=== PATIENT | female | born 1950 | race Caucasian/White ===

== ENCOUNTER → 2017-01-11 | Outpatient (CLI) | payer MEDICARE ==
--- NOTE | 2017-01-11 15:35 | XR ---
Left shoulder HISTORY: Pain, fall 3 months prior 3 views of the left shoulder No comparisons Bone mineralization is reduced which may limit sensitivity. Alignment and joint spaces are maintained . Left lung apex as visualized is normal. No fracture or dislocation. IMPRESSION: No significant bone abnormality. Consider shoulder MRI for better evaluation
== END | disposition home or self-care (01) ==
LOC: RADXRYALE 13:08
PROVIDERS: ATTEND Internal Medicine
DX: M25.512 Pain in left shoulder (principal)

== ENCOUNTER 2020-04-19 10:57 | Emergency (ER) | payer OTHER, MEDICARE ==
[2020-04-19 11:09] VITALS: BP 130/80; PULSE 85; RESP 20; TEMP 98.6
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
--- NOTE | 2020-04-19 12:36 | XR ---
EXAMINATION TYPE: XR chest 2V DATE OF EXAM: 04/19/2020 COMPARISON: NONE HISTORY: Trauma 2 days prior, pain TECHNIQUE: Frontal and lateral views of the chest are obtained. FINDINGS: There is no focal air space opacity, pleural effusion, or pneumothorax seen. The cardiac silhouette size is within normal limits. The osseous structures are remarkable for an anterior wedg e compression deformity in the upper lumbar spine with only slight loss of the superior endplate heig ht. There is eventration of right hemidiaphragm. There is a slight spinal curvature. The aorta is den se. IMPRESSION: No acute cardiopulmonary process. Compression deformity lumbar spine of questionable age .
--- NOTE | 2020-04-19 12:38 | XR ---
Right elbow HISTORY: Trauma 2 days prior, pain 3 views the right elbow There is soft tissue swelling present. Small ossific density present at the level of the lateral cond yle the distal humerus may be due to calcification rather than chip fracture or avulsion injury. Ther e are some marginal spurring changes present. Bone mineralization is reduced. Joint spaces and alignm ent are maintained. No evident joint effusion. IMPRESSION: Soft tissue swelling. No acute fracture or dislocation is evident.
== END 2020-04-19 12:55 | disposition home or self-care (01) ==
LOC: EC 10:57
DX: M62.830 Muscle spasm of back (principal); M25.522 Pain in left elbow; Z90.49 Acquired absence of other specified parts of digestive tract; V43.52XA Car driver injured in collision with other type car in traffic accident, initial encounter; Y92.410 Unspecified street and highway as the place of occurrence of the external cause
CPT/HCPCS: 71046; 93005; 99284

== ENCOUNTER 2021-12-17 09:28 | Day surgery (SDC) | payer MEDICARE ==
[2021-12-16 11:39] VITALS: BMI 26.5
[2021-12-17 10:35] VITALS: TEMP 97.9
[2021-12-17] MEDS: LACTATED RINGERS 1,000 ML IV SCH ×2 (10:35→11:40)
[2021-12-17] MEDS ORDERED: PROPOFOL 10 MG/ML 20 ML VIAL IV ONE (11:41)
[2021-12-17] MEDS ORDERED: LIDOCAINE 2% INJ 20 MG/ML (2 ML VIAL) ONE (11:41)
--- NOTE | 2021-12-17 11:51 | P.PCN ---
Date of Procedure: 12/17/21 Procedure(s) Performed: BRIEF HISTORY: Patient is a 68-year-old, pleasant, white female scheduled for an upper endoscopy as a part of follow-up of peptic ulcer disease. She had an upper GI bleed in August 2019 an upper endoscopy done in regards to the hospital and was diagnosed with large prepyloric gastric ulcer. Since then she has been on omeprazole and Carafate and doing well.. PROCEDURE PERFORMED: Esophagogastroduodenoscopy with biopsy. PREOPERATIVE DIAGNOSIS: Follow-up of peptic ulcer disease. IV sedation per anesthesia. PROCEDURE: After informed consent was obtained, the patient was brought into the endoscopy unit. IV sedation was administered by Anesthesia under continuous monitoring. Initially the Olympus GIF-140 video endoscope was inserted into the mouth. Esophagus intubated without any difficulty. It was gradually advanced into the stomach and duodenum and carefully examined. The bulb and the second part of the duodenum appeared normal. The scope at this time was withdrawn to the stomach, adequately insufflated with air, and upon careful examination, in the prepyloric area with the previous ulcerations identified there was a polyp seen but also has completely healed. Biopsies were done from this polyp. Rest of the mucosa of the antrum, body, cardia and the fundus appeared normal. The scope was then withdrawn into the esophagus. The GE junction was located at 39 cm from the incisors. Small sliding type hiatal hernia noted. The esophagus appeared normal. There were no erosions or ulcerations seen and the patient tolerated the procedure well. IMPRESSION: 1. Prepyloric ulcer has completely. 2. Small prepyloric gastric polyps status post biopsy. 3. Small sliding type hiatal hernia RECOMMENDATIONS: The findings of this examination were discussed with the patient as well his family. She was advised to follow with the biopsy results. She can stop the omeprazole at this time as there was complete healing of the gastric ulcer...
[2021-12-17 12:22] VITALS: BP 152/67; PULSE 63; RESP 16
== END 2021-12-17 12:35 | disposition home or self-care (01) ==
LOC: ORWHC2ENDO 09:28
PROVIDERS: ATTEND Internal Medicine Gastroenterology
DX: K29.50 Unspecified chronic gastritis without bleeding (principal); K44.9 Diaphragmatic hernia without obstruction or gangrene; I25.2 Old myocardial infarction; I25.10 Atherosclerotic heart disease of native coronary artery without angina pectoris; E07.9 Disorder of thyroid, unspecified; K21.9 Gastro-esophageal reflux disease without esophagitis; Z95.5 Presence of coronary angioplasty implant and graft; Z98.890 Other specified postprocedural states
CPT/HCPCS: 88305; 43239; J2704; J2001

== ENCOUNTER 2022-01-08 06:21 | Day surgery (SDC) | payer MEDICARE ==
[~2022-01-08 06:21] MED LIST: ALPRAZolam 0.25 MG TAB PO PRN; ALPRAZolam 0.5 MG TAB PO PRN; ASPIRIN 325 MG TAB PO STA; ATORVASTATIN 80 MG TAB PO STA; HEPARIN SODIUM,PORCINE 10,000 UNIT in SODIUM CHLORIDE 0.9% 1,000 ML IRRIGATION PRN; HEPARIN SODIUM,PORCINE 2,500 UNIT in SODIUM CHLORIDE 0.9% 250 ML IRRIGATION PRN; NITROGLYCERIN SL TABS 0.4 MG TAB SUBLINGUAL PRN; SODIUM CHLORIDE 0.9% 1,000 ML in EMPTY BAG 1 BAG IV SCH
[2022-01-08] MEDS ORDERED: SODIUM CHLORIDE 0.9% 1,000 ML IV ONE (07:14)
[2022-01-08 07:33] LABS: Basophils # (A) 0.1 k/uL (0-0.2); Basophils % (A) 1 %; Eosinophils # (A) 0.3 k/uL (0-0.7); Eosinophils % (A) 7 %; HCT 36.9 % (34.0-46.0); HGB 11.9 gm/dL (11.4-16.0); Hypochromasia Moderate; Lymphocytes # (A) 1.8 k/uL (1.0-4.8); Lymphocytes % (A) 45 %; MCH 28.8 pg (25.0-35.0); MCHC 32.1 g/dL (31.0-37.0); MCV 89.7 fL (80.0-100.0); Mean Platelet Volume 9.3; Monocytes # (A) 0.2 k/uL (0-1.0); Monocytes % (A) 5 %; Neutrophils # (A) 1.6 k/uL (1.3-7.7); Neutrophils % (A) 39 %; Platelet Count 221 k/uL (150-450); RBC 4.11 m/uL (3.80-5.40); RDW 15.3 % (11.5-15.5)
[2022-01-08 07:35] VITALS: RESP 16; TEMP 98.2
[2022-01-08 07:55] LABS: African American GFR (CKD) >90 (>60 ml/min/1.73 sqM); Anion Gap 5 mmol/L; Blood Urea Nitrogen 12 mg/dL (7-17); Calcium 8.9 mg/dL (8.4-10.2); Carbon Dioxide 27 mmol/L (22-30); Chloride 109 mmol/L (98-107); Glucose 86 mg/dL (74-99); Non-African American GFR(CKD) 88 (>60 ml/min/1.73 sqM); Potassium 3.7 mmol/L (3.5-5.1); Sodium 141 mmol/L (137-145)
[2022-01-08] MEDS ORDERED: VERAPAMIL 2.5 MG/ML 2 ML AMP ONE (09:05)
[2022-01-08] MEDS ORDERED: fentaNYL (PF) 50 MCG/ML 2 ML AMP ONE (09:10)
[2022-01-08] MEDS ORDERED: HEPARIN SODIUM 1,000 UN/ML (10ML VL) ONE (09:10)
[2022-01-08] MEDS ORDERED: LIDOCAINE 1% INJ 10MG/ML (30 ML VIAL-PF) SQ ONE ×2 (09:29→09:32)
[2022-01-08] MEDS ORDERED: fentaNYL (PF) 50 MCG/ML 2 ML AMP IV ONE (09:29)
[2022-01-08] MEDS ORDERED: VERAPAMIL SYRINGE (5 MG/10 ML) INTRAARTER ONE (09:34)
[2022-01-08] MEDS ORDERED: HEPARIN SODIUM 1,000 UN/ML (10ML VL) IV ONE (09:38)
[2022-01-08] MEDS ORDERED: IOPAMIDOL-370 125ML BTL INJ ONE (09:44)
[2022-01-08] MEDS ORDERED: RX INFO: IV CONTRAST WAS GIVEN 1 EACH MISC MISCELLANE PRN (09:53)
[2022-01-08] MEDS ORDERED: SODIUM CHLORIDE 0.9% 1,000 ML IV SCH (10:00)
--- NOTE | 2022-01-08 10:03 | P.CARDCATH ---
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 Recommendations were made regarding cardiac catheterization, the risks and the complications were discussed with the patient who is in full understanding and agreement. Procedure Description: Patient was brought to [facility] in fasting semi-sedated state after receiving Fentanyl and Benadryl achieiving moderate conscious sedated state. Using Xylocaine Anesthesia and Seldinger technique, a 6-[place] sheath was introduced in the right radial artery . Subsequently, selective coronary angiography was performed using a 5-[place] 3.5 bend Radha catheter. Multiple views of the coronary artery including hemiaxial views were obtained. The right Radha catheter was used to cross the aortic valve and LVEDP was calculated. Following that, catheter and sheath were removed. Hemostasis was obtained with deployment of TR band . There was no immediate complication. Patient was returned to room in stable condition. Of note, the patient received a total of 3500 units of intravenous heparin as well as intra-arterial verapamil. Findings: Fluoroscopy: Calcifications of the coronary arteries were noted Left main: This is a large size vessel, bifurcating into left circumflex and LAD, the stent is patent with no significant in-stent restenosis LAD: This is a large size vessel, reaching to the apex, giving rise to moderately sized first diagonal branch, the proximal segment of the diagonal branch has 60-70% stenosis there is no significant in-stent restenosis of the LAD. There is 30-40% plaque in the mid segment of the LAD the rest of the vessel has no high-grade stenosis Left circumflex: This is a nondominant vessel, the stent this segment in the proximal area is patent there is 20-30% in-stent restenosis. It gives rise to 2 obtuse marginal branch the first one has 70-80% ostial stenosis, the rest of the vessel has no high-grade stenosis RCA: This is a large dominant vessel, bifurcating into PDA and PLV, the RCA has mild disease in the midsegment of 20-30% the rest of the vessel has no high- grade stenosis Left Ventriculogram: Not performed Hemodynamics: There was no gradient across the aortic valve , LVEDP was 10-12 mmHg Conclusion: 1. Calcified coronary arteries 2. Patent left main stent 3. Patent LAD stent with no significant restenosis 4. Patent left circumflex stent with mild in-stent restenosis 5. Moderate disease in the first diagonal branch 6. Significant disease in the ostium of the left circumflex obtuse marginal branch 1 Recommendations: And view of the anatomy I have recommended to maximize medical therapy. She has persistent symptoms then the option of PCI of the diagonal branch or the OM can be considered. The findings and the recommendations were discussed with the patient and the family and they were in full understanding and agreement. Duration of sedation is 13 minutes.
[2022-01-08 13:09] VITALS: PULSE 52
[2022-01-08 13:10] VITALS: BP 163/72
[2022-01-08] MEDS ORDERED: ATORVASTATIN 40 MG TAB PO SCH (21:00)
[2022-01-09] MEDS ORDERED: LEVOTHYROXINE 125 MCG TAB PO SCH (09:00)
[2022-01-09] MEDS ORDERED: FLUoxetine HCL 20 MG CAP PO SCH (09:00)
[2022-01-09] MEDS ORDERED: METOPROLOL SUCCINATE (ER) 25 MG TAB.ER.24H PO SCH (09:00)
[2022-01-09] MEDS ORDERED: PRASUGREL 10 MG TAB PO SCH (09:00)
[2022-01-09] MEDS ORDERED: PANTOPRAZOLE 40 MG TABLET PO SCH (09:00)
== END 2022-01-08 13:58 | disposition home or self-care (01) ==
LOC: CATHCVL 06:21
PROVIDERS: ATTEND Internal Medicine Interventional Cardiology
DX: I25.10 Atherosclerotic heart disease of native coronary artery without angina pectoris (principal); E78.5 Hyperlipidemia, unspecified; I10 Essential (primary) hypertension
CPT/HCPCS: 93458; 80048; 85025; C1769 ×2; C1894; J2001; J3010; J1644; Q9967

== ENCOUNTER 2022-08-21 20:49 | Emergency (ER) | payer MEDICARE ==
[2022-08-21 21:08] VITALS: RESP 18
--- NOTE | 2022-08-21 21:13 | ED ---
Fall HPI - General Chief Complaint: Fall Stated Complaint: Fall Time Seen by Provider: 08/21/22 21:05 Source: patient, family (Sister) Mode of arrival: wheelchair - History of Present Illness Initial Comments: Patient is a pleasant 71-year-old female presenting to the emergency room with her sister for further evaluation after a trip and fall that occurred around 1 PM earlier today. She was in a standing position and reports went to turn around and lost her footing falling to the floor on her left side but she believes that she pushed her right arm against her refrigerator. She is complaining of pain in her right shoulder and upper arm region but has full range of motion. She denies any pain in any other extremity. She lowers her left eye with a laceration above her left eye. Her entire sclera is injected but reports that her vision is actually better post fall than it was previously. She is legally blind in her right eye. She denies any abdominal pain, chest pain, headache, dizziness, nausea or vomiting. She is on Effient as a blood thinner for her CAD additionally she has a past medical history significant for hypertension, hyperlipidemia, myocardial infarction, GERD, osteoarthritis and hypothyroidism. - Related Data Home Medications Medication Instructions Recorded Confirmed FLUoxetine HCL [PROzac] 40 mg PO DAILY 12/16/21 08/21/22 Atorvastatin [Lipitor] 40 mg PO HS 01/07/22 08/21/22 Ferrous Sulfate [Feosol] 325 mg PO DAILY 01/07/22 08/21/22 Pantoprazole [Protonix] 40 mg PO DAILY 01/07/22 08/21/22 Baclofen 10 mg PO HS 08/21/22 08/21/22 Carboxymethylcellulose Sodium 1 drop LEFT EYE TID 08/21/22 08/21/22 [Refresh Tears] Levothyroxine Sodium [Synthroid] 125 mcg PO DAILY 08/21/22 08/21/22 Timolol 0.5% Ophth Soln [Timoptic 1 drop RIGHT EYE DAILY 08/21/22 08/21/22 0.5% Ophth Soln] Allergies Allergy/AdvReac Type Severity Reaction Status Date / Time No Known Allergies Allergy Verified 08/21/22 23:11 Review of Systems ROS Statement: Those systems with pertinent positive or pertinent negative responses have been documented in the HPI. ROS Other: All systems not noted in ROS Statement are negative. Past Medical History Past Medical History: Coronary Artery Disease (CAD), GERD/Reflux, Hyperlipidemia, Hypertension, Myocardial Infarction (NH), Osteoarthritis (OA), Thyroid Disorder Additional Past Medical History / Comment(s): bleeding ulcer, fx. L hip in 2021, covid 2021, SOB w/exertion, recent stress test, frequent leg cramps Last Myocardial Infarction Date:: 2021 History of Any Multi-Drug Resistant Organisms: None Reported Past Surgical History: Cholecystectomy, Heart Catheterization With Stent, Orthopedic Surgery Additional Past Surgical History / Comment(s): ORIF left hip, surg. for bleeding ulcer Past Anesthesia/Blood Transfusion Reactions: No Reported Reaction Date of Last Stent Placement:: 2021 Past Psychological History: Depression Smoking Status: Former smoker Past Alcohol Use History: None Reported Past Drug Use History: None Reported - Past Family History Mother Family Medical History: No Reported History General Exam Limitations: no limitations General appearance: alert, in no apparent distress Head exam: Present: normocephalic Expanded Head exam: Present: laceration (Left eye just under brow approximately 3 cm in length), hematoma (Periorbital left eye) Eye exam: Present: conjunctival injection (Left), periorbital swelling (Left), periorbital tenderness (Left), other (Right eye blind) Expanded Pupils: Regular, Round: Left, Reactive: Left ENT exam: Present: normal oropharynx, mucous membranes moist Neck exam: Present: normal inspection, full ROM. Absent: tenderness GI/Abdominal exam: Present: soft, normal bowel sounds. Absent: distended, tenderness, guarding, rebound, rigid Rectal exam: Present: deferred Right Shoulder Exam: Present: full ROM (Full but painful active range of motion), tenderness. Absent: swelling, deformity, crepitus, dislocation, erythema, tenderness over AC joint Upper Arm exam: Present: normal inspection Elbow exam: Present: normal inspection Forearm Wrist exam: Present: normal inspection Hand Wrist exam: Present: normal inspection Vascular: Absent: vascular compromise Back exam: Present: normal inspection, full ROM Neurological exam: Present: alert, oriented X3, CN II-XII intact Psychiatric exam: Present: normal affect, normal mood Skin exam: Present: other (Laceration and ecchymosis as indicated above.) Course Vital Signs 08/21/22 08/21/22 08/21/22 20:50 20:58 22:16 Temperature 98.6 F 98.0 F 98.1 F Pulse Rate 74 96 Respiratory 20 18 18 Rate Blood Pressure 143/71 135/69 164/66 O2 Sat by Pulse 98 Oximetry 08/21/22 23:31 Temperature Pulse Rate Respiratory Rate Blood Pressure 161/72 O2 Sat by Pulse Oximetry Procedures - Laceration Laceration #1 Indication: laceration Site: face Size (cm): 3 Description: linear Depth: simple, single layer Anesthetic Used: lidocaine 1% Anesthesia Technique: local infiltration Pre-repair: wound explored, irrigated extensively, deep structures intact Type of Sutures: nylon Size of Sutures: 5-0 Number of Sutures: 7 Technique: simple, interrupted Patient Tolerated Procedure: well, no complications Medical Decision Making - Medical Decision Making Was pt. sent in by a medical professional or institution (Dr. PA, [facility], urgent care, hospital, or halfway...) When possible be specific @ -No Did you speak to anyone other than the patient for history (EMS, parent, family, police, friend...)? What history was obtained from this source @ -No Did you review nursing and triage notes (agree or disagree)? Why? @ -I reviewed and agree with nursing and triage notes Were old charts reviewed (outside hosp., previous admission, EMS record, old EKG, old radiological studies, urgent care reports/EKG's, halfway records)? Report findings @ -No old charts were reviewed Differential Diagnosis (chest pain, altered mental status, abdominal pain women, abdominal pain men, vaginal bleeding, weakness, fever, dyspnea, syncope, headache, dizziness, GI bleed, back pain, seizure, CVA, palpatations, mental health, musculoskeletal)? @ -Differential Musculoskeletal Muscular strain, contusion, ligament sprain, fracture, arthritis, septic arthritis, bursitis, cellulitis, muscle spasm, nerve compression, DVT, arterial occlusion, herpes zoster, electrolyte abnormality, tumor.... This is not meant to be in all inclusive list EKG interpreted by me (3pts min.). @ -None done X-rays interpreted by me (1pt min.). @ -X-ray right shoulder: Degenerative changes consistent with osteoarthritis no acute subluxation or fracture. CT interpreted by me (1pt min.). @ -CT brain and cervical spine without contrast: No acute intracranial process, no intracranial hemorrhage, mass or shift. Cervical spine without fracture or subluxation. U/S interpreted by me (1pt. min.). @ -None done What testing was considered but not performed or refused? (CT, X-rays, U/S, labs)? Why? @ -None What meds were considered but not given or refused? Why? @ -None Did you discuss the management of the patient with other professionals (professionals i.e. , PA, [facility], lab, RT, psych nurse, social services aide, cycle analyst, t eacher, transportation security officer, manager case management)? Give summary @ -No Was smoking cessation discussed for >3mins.? @ -No Was critical care preformed (if so, how long)? @ -No Were there social determinants of health that impacted care today? How? (Homelessness, low income, unemployed, alcoholism, drug addiction, transportation, low edu. Level, literacy, decrease access to med. care, penitentiary, rehab)? @ -No Was there de-escalation of care discussed even if they declined (Discuss DNR or withdrawal of care, Hospice)? DNR status @ -No What co-morbidities impacted this encounter? (DM, HTN, Smoking, COPD, CAD, Cancer, CVA, ARF, Chemo, Hep., AIDS, mental health diagnosis, sleep apnea, morbid obesity)? @ -None Was patient admitted / discharged? Hospital course, mention meds given and [place], prescriptions, significant lab abnormalities, going to OR and other pertinent info. @ -71-year-old female presenting to the emergency room after a trip and fall on standing level on blood thinners around 1 PM today approximately 7 hours prior to arrival. Significant left eye hematoma and sclera injection noted with vision intact. Complaining of right shoulder pain. No pain in any other extremities or chest. Will obtain CT of the brain and cervical spine and x-ray of the right shoulder. Due to fall will obtain basic labs of CBC, CMP and coags. Laceration above left eye will need closure after diagnostic imaging. Increased pain levels will give morphine for pain. CT of the brain and cervical spine negative for acute intracranial process cervical spine fracture or subluxation. X-ray of right shoulder negative for fracture or dislocation, degenerative changes noted. Laboratory studies demonstrate mild chronic anemia hemoglobin 10.9, coags show elevated INR at 1.2 with normal PT and normal PTT. CMP with elevated chloride 110 low carbon dioxide at 20 with stable renal function. Bilirubin slightly elevated at 1.9 with normal AST ALT and alkaline phosphate. No indication for further diagnostic imaging or laboratory studies. Laceration closed the with sutures without complication. Diagnostic imaging and workup discussed with patient and sister at bedside at length. Wound care and follow-up for suture removal discussed. Encouraged fall precautions and advised follow-up with primary care provider. Tramadol starter pack given to utilize for pain due to pharmacy currently being closed. Advised may also utilize [id number] Tylenol or Motrin as needed. Questions and concerns answered. Strict return parameters to the emergency room discussed. Will discharge home in stable condition with sutures intact to laceration above left eye encouraging fall precautions and follow-up with primary care provider regarding left periorbital hematoma. Undiagnosed new problem with uncertain prognosis? @ -No Drug Therapy requiring intensive monitoring for toxicity (Heparin, Nitro, Insulin, Cardizem)? @ -No Were any procedures done? @ -Yes, sutures placed for laceration closure see procedures for details Diagnosis/symptom? @ -Fall Acute, or Chronic, or Acute on Chronic? @ -Acute Uncomplicated (without systemic symptoms) or Complicated (systemic symptoms)? @ -Uncomplicated Side effects of treatment? @ -No Exacerbation, Progression, or Severe Exacerbation? @ -No Poses a threat to life or bodily function? How? (Chest pain, [place], NH, pneumonia, PE, COPD, DKA, ARF, appy, cholecystitis, CVA, Diverticulitis, Homicidal, Suicidal, threat to staff... and all critical care pts) @ -No Diagnosis/symptom? @ -Laceration above left eye Acute, or Chronic, or Acute on Chronic? @ -Acute Uncomplicated (without systemic symptoms) or Complicated (systemic symptoms)? @ -Uncomplicated Side effects of treatment? @ -none Exacerbation, Progression, or Severe Exacerbation] @ -no Poses a threat to life or bodily function? @ -no Case discussed with Dr. Kuhn. - Lab Data Result diagrams: 08/21/22 21:27 08/21/22 21:27 Lab Results 08/21/22 08/21/22 08/21/22 Range/Units 21:27 21:27 22:13 WBC 3.9 (3.8-10.6) k/uL RBC 3.69 L (3.80-5.40) m/uL Hgb 10.9 L (11.4-16.0) gm/dL Hct 33.5 L (34.0-46.0) % MCV 90.6 (80.0-100.0) fL MCH 29.4 (25.0-35.0) pg MCHC 32.4 (31.0-37.0) g/dL RDW 16.5 H (11.5-15.5) % Plt Count 193 (150-450) k/uL MPV 7.9 Neutrophils % 55 % Lymphocytes % 33 % Monocytes % 7 % Eosinophils % 3 % Basophils % 0 % Neutrophils # 2.2 (1.3-7.7) k/uL Lymphocytes # 1.3 (1.0-4.8) k/uL Monocytes # 0.3 (0-1.0) k/uL Eosinophils # 0.1 (0-0.7) k/uL Basophils # 0.0 (0-0.2) k/uL Hypochromasia Slight Anisocytosis Slight PT 12.0 (9.0-12.0) sec INR 1.2 H (<1.2) APTT 23.8 (22.0-30.0) sec Sodium 138 (137-145) mmol/L Potassium 3.7 (3.5-5.1) mmol/L Chloride 110 H (98-107) mmol/L Carbon Dioxide 20 L (22-30) mmol/L Anion Gap 8 mmol/L BUN 16 (7-17) mg/dL Creatinine 0.47 L (0.52-1.04) mg/dL Est GFR (CKD-EPI)AfAm >90 (>60 ml/min/1.73 sqM) Est GFR (CKD-EPI)NonAf >90 (>60 ml/min/1.73 sqM) Glucose 88 (74-99) mg/dL Calcium 9.1 (8.4-10.2) mg/dL Total Bilirubin 1.9 H (0.2-1.3) mg/dL AST 36 (14-36) U/L ALT 20 (4-34) U/L Alkaline Phosphatase 66 (38-126) U/L Total Protein 5.9 L (6.3-8.2) g/dL Albumin 3.3 L (3.5-5.0) g/dL - Radiology Data Radiology results: report reviewed, image reviewed Disposition Clinical Impression: Fall, Laceration Disposition: HOME SELF-CARE Condition: Stable Instructions (If sedation given, give patient instructions): Care For Your Stitches (ED), Laceration (ED), Fall Prevention for Older Adults (ED) Additional Instructions: Please keep wound clean and dry. Monitor for signs and symptoms of infection and seek medical attention as appropriate if symptoms occur. Please return to the emergency department for suture removal in 7-10 days. Please return to the Emergency Department if symptoms worsen or any other concerns. Is patient prescribed a controlled substance at d/c from ED?: No Referrals: Herb Patel MD [Primary Care Provider] - 1-2 days Time of Disposition: 23:06
[2022-08-21 21:50] LABS: Anisocytosis Slight; Basophils % (A) 0 %; Eosinophils # (A) 0.1 k/uL (0-0.7); Eosinophils % (A) 3 %; HCT 33.5 % (34.0-46.0); HGB 10.9 gm/dL (11.4-16.0); Hypochromasia Slight; Lymphocytes # (A) 1.3 k/uL (1.0-4.8); Lymphocytes % (A) 33 %; MCH 29.4 pg (25.0-35.0); MCHC 32.4 g/dL (31.0-37.0); MCV 90.6 fL (80.0-100.0); Mean Platelet Volume 7.9; Monocytes # (A) 0.3 k/uL (0-1.0); Monocytes % (A) 7 %; Neutrophils # (A) 2.2 k/uL (1.3-7.7); Neutrophils % (A) 55 %; Platelet Count 193 k/uL (150-450); RBC 3.69 m/uL (3.80-5.40); RDW 16.5 % (11.5-15.5); WBC 3.9 k/uL (3.8-10.6)
--- NOTE | 2022-08-21 22:06 | CT ---
EXAMINATION TYPE: CT brain betito flannery con DATE OF EXAM: 08/21/2022 COMPARISON: none HISTORY: Pt fell from standing position, severe bruising around left eye. CT DLP: Combined DLP of [address] of the brain was performed. The ventricles, basal cisterns and sulci overlying the cerebral convexities demonstrate mild enlargem ent. There is no evidence for intracranial hemorrhage or sulcal effacement. There is decreased attenuatio n about the periventricular white matter and deep white matter of both cerebral hemispheres, compatib le with chronic small vessel ischemia. Basal ganglia calcifications seen. No mass effects are seen. If symptoms persist consider MRI. Osseous calvarium is intact. Left superior orbital soft tissue edema noted. IMPRESSION: 1. Age related atrophic and chronic small vessel ischemic change without acute intracranial process seen at this time. CT Cervical Spine: Unenhanced CT of the cervical spine was performed with bone and soft tissue window settings submitted . Coronal and sagittal reconstruction is obtained. There is normal alignment and prevertebral soft tissues. No evidence for acute cervical fracture . Scattered degenerative disc disease and spondylosis. Biapical scarring. IMPRESSION: 1. No evidence for acute fracture or subluxation of the cervical spine.
--- NOTE | 2022-08-21 22:07 | XR ---
EXAMINATION TYPE: XR shoulder complete RT DATE OF EXAM: 08/21/2022 CLINICAL HISTORY: pain TECHNIQUE: Three views of the right shoulder are obtained. COMPARISON: None FINDINGS: There is no acute fracture/dislocation evident. Elevation humeral head relative to the ce ntral glenoid axis may reflect chronic rotator cuff tear. Degenerative narrowing at AC joint and gerry ohumeral joint space. The visualized ribs are intact and unremarkable. IMPRESSION: 1. There is no acute fracture or dislocation. ICD 10 NO FRACTURE, INITIAL EVALUATION
--- NOTE | 2022-08-21 22:11 | CT ---
EXAMINATION TYPE: CT facial bones wo con DATE OF EXAM: 08/21/2022 COMPARISON: none HISTORY: Pt fell from standing position, severe bruising around left eye. CT DLP: Combined DLP of [address] of the facial bones was performed in the axial and coronal planes. Bone and soft tissu e window settings are submitted. Left periorbital soft tissue edema and hematoma noted. I do not see evidence for displaced facial bone fracture or depressed facial bone fracture. The globes are intact. Right orbital prosthesis. Paranasal sinuses are well-aerated. IMPRESSION: 1. No evidence for depressed or displaced facial bone fracture.
[2022-08-21] MEDS ORDERED: LIDOCAINE 1% INJ 10MG/ML (30 ML VIAL-PF) SQ ONE (22:16)
[2022-08-21 22:17] VITALS: PULSE 96; TEMP 98.1
[2022-08-21 22:17] LABS: ALT 20 U/L (4-34); AST 36 U/L (14-36); African American GFR (CKD) >90 (>60 ml/min/1.73 sqM); Albumin 3.3 g/dL (3.5-5.0); Alkaline Phosphatase 66 U/L (38-126); Anion Gap 8 mmol/L; Blood Urea Nitrogen 16 mg/dL (7-17); Calcium 9.1 mg/dL (8.4-10.2); Carbon Dioxide 20 mmol/L (22-30); Chloride 110 mmol/L (98-107); Glucose 88 mg/dL (74-99); Non-African American GFR(CKD) >90 (>60 ml/min/1.73 sqM); Potassium 3.7 mmol/L (3.5-5.1); Sodium 138 mmol/L (137-145); Total Bilirubin 1.9 mg/dL (0.2-1.3); Total Protein 5.9 g/dL (6.3-8.2)
[2022-08-21] MEDS ORDERED: MORPHINE SULFATE 2 MG/ML SYRINGE IVP STA (22:21)
[2022-08-21 22:30] LABS: INR 1.2 (<1.2); Partial Thromboplastin Time 23.8 sec (22.0-30.0)
[2022-08-21] MEDS ORDERED: traMADol 50 MG STARTER PACK 3 TAB BTL PO STA (23:06)
[2022-08-21 23:33] VITALS: BP 161/72
== END 2022-08-21 23:33 | disposition home or self-care (01) ==
LOC: EC 20:49
DX: S01.112A Laceration without foreign body of left eyelid and periocular area, initial encounter (principal); M25.511 Pain in right shoulder; I10 Essential (primary) hypertension; I25.2 Old myocardial infarction; I25.10 Atherosclerotic heart disease of native coronary artery without angina pectoris; E78.5 Hyperlipidemia, unspecified; K21.9 Gastro-esophageal reflux disease without esophagitis; F32.A Depression, unspecified; E07.9 Disorder of thyroid, unspecified; Z79.890 Hormone replacement therapy; Z79.899 Other long term (current) drug therapy; Z87.891 Personal history of nicotine dependence; W01.0XXA Fall on same level from slipping, tripping and stumbling without subsequent striking against object, initial encounter
CPT/HCPCS: 99285; 96374; 12013; 36415; 80053; 85025; 85610; 85730; 73030; 72125; 70486; 70450; J2001; J2270

== ENCOUNTER 2023-05-21 19:11 | Inpatient (IN) | payer MEDICARE ==
[2023-05-21 19:35] LABS: Basophils % (A) 0 %; Eosinophils # (A) 0.1 k/uL (0-0.7); Eosinophils % (A) 2 %; HCT 39.9 % (34.0-46.0); HGB 12.7 gm/dL (11.4-16.0); Lymphocytes # (A) 0.7 k/uL (1.0-4.8); Lymphocytes % (A) 13 %; MCH 31.1 pg (25.0-35.0); MCHC 31.7 g/dL (31.0-37.0); MCV 97.8 fL (80.0-100.0); Monocytes # (A) 0.2 k/uL (0-1.0); Monocytes % (A) 3 %; Neutrophils # (A) 4.5 k/uL (1.3-7.7); Neutrophils % (A) 81 %; Platelet Count 198 k/uL (150-450); RBC 4.08 m/uL (3.80-5.40); RDW 14.6 % (11.5-15.5); WBC 5.6 k/uL (3.8-10.6)
[2023-05-21 19:50] LABS: ALT 24 U/L (4-34); African American GFR (CKD) >90 (>60 ml/min/1.73 sqM); Amylase 45 U/L (30-110); Anion Gap 7 mmol/L; Blood Urea Nitrogen 23 mg/dL (7-17); Calcium 9.6 mg/dL (8.4-10.2); Carbon Dioxide 20 mmol/L (22-30); Chloride 112 mmol/L (98-107); Glucose 157 mg/dL (74-99); Lipase 292 U/L (23-300); Non-African American GFR(CKD) >90 (>60 ml/min/1.73 sqM); Sodium 139 mmol/L (137-145)
[2023-05-21 19:51] LABS: AST 55 U/L (14-36); Albumin 3.8 g/dL (3.5-5.0); Alkaline Phosphatase 74 U/L (38-126); Potassium 5.2 mmol/L (3.5-5.1); Total Bilirubin 1.9 mg/dL (0.2-1.3); Total Protein 6.6 g/dL (6.3-8.2)
--- NOTE | 2023-05-21 20:02 | ED ---
Abdominal Pain HPI - General Chief Complaint: Abdominal Pain Stated Complaint: Abd pain Time Seen by Provider: 05/21/23 19:20 Source: EMS Mode of arrival: EMS - History of Present Illness Initial Comments: 72-year-old female with past medical history significant for hypertension, hyperlipidemia, presenting to the ED with a chief complaint of abdominal pain. Patient states yesterday onset of lower abdominal pain. Today, onset of nausea, dry heaves, and 1 episode of nonbloody diarrhea. Denies fever or chills. Denies chest pains or shortness of breath. Patient does note some urinary frequency however reports that she has history of this and is unchanged. Patient states that she was bit by a tick approximately 7 months ago which she has seen her PCP for. Reports joint pains however this is unchanged compared to history of joint pains. No other complaints at this time. - Related Data Home Medications Medication Instructions Recorded Confirmed FLUoxetine HCL [PROzac] 40 mg PO DAILY 12/16/21 08/21/22 Atorvastatin [Lipitor] 40 mg PO HS 01/07/22 08/21/22 Ferrous Sulfate [Feosol] 325 mg PO DAILY 01/07/22 08/21/22 Pantoprazole [Protonix] 40 mg PO DAILY 01/07/22 08/21/22 Baclofen 10 mg PO HS 08/21/22 08/21/22 Carboxymethylcellulose Sodium 1 drop LEFT EYE TID 08/21/22 08/21/22 [Refresh Tears] Levothyroxine Sodium [Synthroid] 125 mcg PO DAILY 08/21/22 08/21/22 Timolol 0.5% Ophth Soln [Timoptic 1 drop RIGHT EYE DAILY 08/21/22 08/21/22 0.5% Ophth Soln] Allergies Allergy/AdvReac Type Severity Reaction Status Date / Time No Known Allergies Allergy Verified 05/21/23 19:16 Review of Systems ROS Statement: Those systems with pertinent positive or pertinent negative responses have been documented in the HPI. ROS Other: All systems not noted in ROS Statement are negative. Past Medical History Past Medical History: Coronary Artery Disease (CAD), GERD/Reflux, Hy perlipidemia, Hypertension, Myocardial Infarction ([place]), Osteoarthritis (OA), Thyroid Disorder Additional Past Medical History / Comment(s): bleeding ulcer, fx. L hip in 2021, covid 2021, SOB w/exertion, recent stress test, frequent leg cramps Last Myocardial Infarction Date:: 2021 History of Any Multi-Drug Resistant Organisms: None Reported Past Surgical History: Cholecystectomy, Heart Catheterization With Stent, Orthopedic Surgery Additional Past Surgical History / Comment(s): ORIF left hip, surg. for bleeding ulcer Past Anesthesia/Blood Transfusion Reactions: No Reported Reaction Date of Last Stent Placement:: 2021 Past Psychological History: Depression Smoking Status: Former smoker Past Alcohol Use History: None Reported Past Drug Use History: None Reported - Past Family History Mother Family Medical History: No Reported History General Exam General appearance: alert, in no apparent distress Eye exam: Present: normal appearance Neck exam: Present: normal inspection Respiratory exam: Present: normal lung sounds bilaterally Cardiovascular Exam: Present: regular rate, normal rhythm, systolic murmur GI/Abdominal exam: Present: soft (Diffuse abdominal tenderness to palpation. No rebound guarding or rigidity.), normal bowel sounds Back exam: Present: normal inspection Neurological exam: Present: alert, oriented X3 Skin exam: Present: warm, dry, other (Area in which patient states bit take her right lower leg shows no rash or erythema migrans.) Course Vital Signs 05/21/23 05/21/23 05/21/23 19:13 20:47 22:49 Temperature 98.3 F Pulse Rate 64 65 72 Respiratory 16 16 18 Rate Blood Pressure 139/57 141/68 153/69 O2 Sat by Pulse 98 98 97 Oximetry 05/22/23 05/22/23 00:45 02:00 Temperature Pulse Rate 68 74 Respiratory 18 18 Rate Blood Pressure 155/63 164/76 O2 Sat by Pulse 98 97 Oximetry Medical Decision Making - Medical Decision Making Was pt. sent in by a medical professional or institution (, PA, ECG TECHNICIAN, urgent care, hospital, or usp...) When possible be specific @ -No Did you speak to anyone other than the patient for history (EMS, parent, family, police, friend...)? What history was obtained from this source @ -No Did you review nursing and triage notes (agree or disagree)? Why? @ -I reviewed and agree with nursing and triage notes Were old charts reviewed (outside hosp., previous admission, EMS record, old E KG, old radiological studies, urgent care reports/EKG's, usp records)? Report findings @ -No old charts were reviewed Differential Diagnosis (chest pain, altered mental status, abdominal pain women, abdominal pain men, vaginal bleeding, weakness, fever, dyspnea, syncope, headache, dizziness, GI bleed, back pain, seizure, CVA, palpatations, mental health, musculoskeletal)? @ -Differential Abdominal Pain Women: Appendicitis, Cholecystitis, diverticulosis, ischemic bowel, pancreatitis, hepatitis, UTI, gastroenteritis, AAA, incarcerated hernia, bowel obstruction, constipation, inflammatory bowel, hepatitis, peptic ulcer disease, splenic infarction, perforated viscus, vulvitis, ovarian torsion, PID, kidney stone, placenta abruption, this is not meant to be an all-inclusive list EKG interpreted by me (3pts min.). @ -None X-rays interpreted by me (1pt min.). @ -Chest x-ray interpreted me which shows NG tube terminating in the esophagus. Repeat pending at this time. CT interpreted by me (1pt min.). @ -CT abdomen pelvis interpreted me which shows fluid-filled distended small bowel loops up to 3.6 cm consistent with bowel obstruction with transition point within the ventral mesentery with swelling of the mesenteric root. U/S interpreted by me (1pt. min.). @ -None done What testing was considered but not performed or refused? (CT, X-rays, U/S, labs)? Why? @ -None What meds were considered but not given or refused? Why? @ -None Did you discuss the management of the patient with other professionals (professionals i.e. , PA, ECG TECHNICIAN, lab, RT, psych nurse, administrator social welfare, director of nurses registry, teacher, product safety officer, wrapper caser)? Give summary @ -Case discussed with Dr. Byrd of general surgery. Advises antibiotics in addition to NG tube and keeping the patient n.p.o. Was smoking cessation discussed for >3mins.? @ -No Was critical care preformed (if so, how long)? @ -No Were there social determinants of health that impacted care today? How? (Homelessness, low income, unemployed, alcoholism, drug addiction, transportation, low edu. Level, literacy, decrease access to med. care, [facility], rehab)? @ -No Was there de-escalation of care discussed even if they declined (Discuss DNR or withdrawal of care, Hospice)? DNR status @ -No What co-morbidities impacted this encounter? (DM, HTN, Smoking, COPD, CAD, Cancer, CVA, ARF, Chemo, Hep., AIDS, mental health diagnosis, sleep apnea, morbid obesity)? @ -None Was patient admitted / discharged? Hospital course, mention meds given and route, prescriptions, significant lab abnormalities, going to OR and other pertinent info. @ -Admission 72-year-old female presenting to the ED with complaint of abdominal pain, nausea, diarrhea onset today. Reports her last normal bowel movement was 2 days ago. Laboratory studies largely unremarkable at this time other than an elevated lactic acid at 2.5. Initiated IV fluids here in the ED. CT abdomen pelvis revealed fluid-filled distended small bowel loops up to 3.6 cm consistent with obstruction with transition point within the ventral mesentery with swelling of the mesenteric root. Patient will be admitted to Dr. Byrd of surgery. Antibiotics initiated. NG tube placed. Patient will be kept NPO. Undiagnosed new problem with uncertain prognosis? @ -No Drug Therapy requiring intensive monitoring for toxicity (Heparin, Nitro, Insulin, Cardizem)? @ -No Were any procedures done? @ -No Diagnosis/symptom? @ -Bowel obstruction Acute, or Chronic, or Acute on Chronic? @ -Acute Uncomplicated (without systemic symptoms) or Complicated (systemic symptoms)? @ -Complicated Side effects of treatment? @ -No Exacerbation, Progression, or Severe Exacerbation? @ -No Poses a threat to life or bodily function? How? (Chest pain, [place], [place], pneumonia, PE, COPD, DKA, ARF, appy, cholecystitis, CVA, Diverticulitis, Homicidal, Suicidal, threat to staff... and all critical care pts) @ -Unlikely - Lab Data Result diagrams: 05/21/23 19:27 05/21/23 19:27 Lab Results 05/21/23 05/21/23 05/21/23 Range/Units 19:27 19: 19: WBC 5.6 (3.8-10.6) k/uL RBC 4.08 (3.80-5.40) m/uL Hgb 12.7 (11.4-16.0) gm/dL Hct 39.9 (34.0-46.0) % MCV 97.8 (80.0-100.0) fL MCH 31.1 (25.0-35.0) pg MCHC 31.7 (31.0-37.0) g/dL RDW 14.6 (11.5-15.5) % Plt Count 198 (150-450) k/uL MPV 9.0 Neutrophils % 81 % Lymphocytes % 13 % Monocytes % 3 % Eosinophils % 2 % Basophils % 0 % Neutrophils # 4.5 (1.3-7.7) k/uL Lymphocytes # 0.7 L (1.0-4.8) k/uL Monocytes # 0.2 (0-1.0) k/uL Eosinophils # 0.1 (0-0.7) k/uL Basophils # 0.0 (0-0.2) k/uL Sodium 139 (137-145) mmol/L Potassium 5.2 H (3.5-5.1) mmol/L Chloride 112 H (98-107) mmol/L Carbon Dioxide 20 L (22-30) mmol/L Anion Gap 7 mmol/L BUN 23 H (7-17) mg/dL Creatinine 0.55 (0.52-1.04) mg/dL Est GFR (CKD-EPI)AfAm >90 (>60 ml/min/1.73 sqM) Est GFR (CKD-EPI)NonAf >90 (>60 ml/min/1.73 sqM) Glucose 157 H (74-99) mg/dL Plasma Lactic Acid Dionte (0.7-2.0) mmol/L Calcium 9.6 (8.4-10.2) mg/dL Total Bilirubin 1.9 H (0.2-1.3) mg/dL AST 55 H (14-36) U/L ALT 24 (4-34) U/L Alkaline Phosphatase 74 (38-126) U/L Total Protein 6.6 (6.3-8.2) g/dL Albumin 3.8 (3.5-5.0) g/dL Amylase 45 (30-110) U/L Lipase 292 (23-300) U/L Urine Color Colorless Urine Appearance Clear (Clear) Urine pH 5.5 (5.0-8.0) Ur Specific [place] 1.041 H (1.001-1.035) Urine Protein Negative (Negative) Urine Glucose (UA) Negative (Negative) Urine Ketones Negative (Negative) Urine Blood Trace H (Negative) Urine Nitrite Negative (Negative) Urine Bilirubin Negative (Negative) Urine Urobilinogen <2.0 (<2.0) mg/dL Ur Leukocyte Esterase Negative (Negative) Urine RBC 1 (0-5) /hpf Urine WBC 1 (0-5) /hpf Ur Squamous Epith Cells <1 (0-4) /hpf Hyaline Casts 1 (0-2) /lpf Urine Mucus Rare H (None) /hpf 05/22/23 Range/Units 00:14 WBC (3.8-10.6) k/uL RBC (3.80-5.40) m/uL Hgb (11.4-16.0) gm/dL Hct (34.0-46.0) % MCV (80.0-100.0) fL MCH (25.0-35.0) pg MCHC (31.0-37.0) g/dL RDW (11.5-15.5) % Plt Count (150-450) k/uL MPV Neutrophils % % Lymphocytes % % Monocytes % % Eosinophils % % Basophils % % Neutrophils # (1.3-7.7) k/uL Lymphocytes # (1.0-4.8) k/uL Monocytes # (0-1.0) k/uL Eosinophils # (0-0.7) k/uL Basophils # (0-0.2) k/uL Sodium (137-145) mmol/L Potassium (3.5-5.1) mmol/L Chloride (98-107) mmol/L Carbon Dioxide (22-30) mmol/L Anion Gap mmol/L BUN (7-17) mg/dL Creatinine (0.52-1.04) mg/dL Est GFR (CKD-EPI)AfAm (>60 ml/min/1.73 sqM) Est GFR (CKD-EPI)NonAf (>60 ml/min/1.73 sqM) Glucose (74-99) mg/dL Plasma Lactic Acid Dionte 2.5 H* (0.7-2.0) mmol/L Calcium (8.4-10.2) mg/dL Total Bilirubin (0.2-1.3) mg/dL AST (14-36) U/L ALT (4-34) U/L Alkaline Phosphatase (38-126) U/L Total Protein (6.3-8.2) g/dL Albumin (3.5-5.0) g/dL Amylase (30-110) U/L Lipase (23-300) U/L Urine Color Urine Appearance (Clear) Urine pH (5.0-8.0) Ur Specific [place] (1.001-1.035) Urine Protein (Negative) Urine Glucose (UA) (Negative) Urine Ketones (Negative) Urine Blood (Negative) Urine Nitrite (Negative) Urine Bilirubin (Negative) Urine Urobilinogen (<2.0) mg/dL Ur Leukocyte Esterase (Negative) Urine RBC (0-5) /hpf Urine WBC (0-5) /hpf Ur Squamous Epith Cells (0-4) /hpf Hyaline Casts (0-2) /lpf Urine Mucus (None) /hpf Disposition Clinical Impression: Bowel obstruction Disposition: ADMITTED IP TO THIS [facility] Condition: Good Referrals: Herb Patel MD [Primary Care Provider] - 1-2 days Time of Disposition: 00:45
[2023-05-21] MEDS: KETOROLAC 15 MG/ML 1 ML VIAL IVP STA (20:45)
[2023-05-21] MEDS: SODIUM CHLORIDE 0.9% 1,000 ML IV STA (20:45)
[2023-05-21 23:07] LABS: Appearance,Urine Clear (Clear); Bilirubin,Urine Negative (Negative); Blood,Urine Trace (Negative); Color,Urine Colorless; Glucose,Urine (UA) Negative (Negative); Hyaline Casts,Urine 1 /lpf (0-2); Ketones,Urine Negative (Negative); Leukocyte Esterase,Urine Negative (Negative); Mucus,Urine Rare /hpf; Nitrite,Urine Negative (Negative); PH, Urine 5.5 (5.0-8.0); Protein,Urine Negative (Negative); RBC,Urine 1 /hpf (0-5); Specific Gravity,Urine 1.041 (1.001-1.035); Squamous Epithelial Cell,Urine <1 /hpf (0-4); Urobilinogen,Urine <2.0 mg/dL (<2.0); WBC,Urine 1 /hpf (0-5)
--- NOTE | 2023-05-21 23:38 | CT ---
EXAM: CT Abdomen and Pelvis With Intravenous Contrast CLINICAL HISTORY: ITS.REASON CT Reason: Lower abd pain N/V/D TECHNIQUE: Axial computed tomography images of the abdomen and pelvis with intravenous contrast. CTDI is 25.0 mGy and DLP is 1134.7 mGy-cm. This CT exam was performed using one or more of the following dose reduction techniques: automated exposure control, adjustment of the mA and/or kV according to patient size, and/or use of iterative reconstruction technique. COMPARISON: No relevant prior studies available. FINDINGS: ABDOMEN: Liver: Cirrhotic liver. Gallbladder and bile ducts: Cholecystectomy. Pancreas: Unremarkable. Spleen: Unremarkable. Adrenals: Unremarkable. Kidneys and ureters: Unremarkable. No obstructing stones. No hydronephrosis. Stomach and bowel: Fluid-filled distended small bowel loops up to 3.6 cm consistent with obstruction. Transition point within the ventral mesentery. There is swirling of the mesenteric root. No pneumatosis. PELVIS: Appendix: No findings to suggest acute appendicitis. Bladder: Unremarkable. Reproductive: Unremarkable as visualized. ABDOMEN and PELVIS: Intraperitoneal space: Unremarkable. No free air. No significant fluid collection. Bones/joints: Left hip ORIF. Chronic fractures at L3 and L4. Soft tissues: Unremarkable. Vasculature: Portosystemic varices. Lymph nodes: Unremarkable. IMPRESSION: 1. Fluid-filled distended small bowel loops up to 3.6 cm consistent with obstruction. Transition point within the ventral mesentery. There is swirling of the mesenteric root. No pneumatosis. 2. Cirrhotic liver. 3. Portosystemic varices.
--- NOTE | 2023-05-22 01:57 | XR ---
EXAM: XR Chest, 1 View CLINICAL HISTORY: ITS.REASON XR Reason: NG Tube Placement TECHNIQUE: Frontal view of the chest. COMPARISON: No relevant prior studies available. FINDINGS: Lungs: Unremarkable. No consolidation. Pleural space: Unremarkable. No pneumothorax. Heart: Unremarkable. No cardiomegaly. Mediastinum: Unremarkable. Normal mediastinal contour. Bones/joints: Unremarkable. No acute fracture. Tubes, lines and devices: Feeding tube terminates in the esophagus. Advancement and reimaging required prior to use. IMPRESSION: Feeding tube terminates in the esophagus. Advancement and reimaging required prior to use.
[2023-05-22] MEDS: SODIUM CHLORIDE 0.9% 1,000 ML IV STA (02:12)
[2023-05-22] MEDS ORDERED: NALOXONE 0.4 MG/ML 1 ML VIAL IV PRN (02:13)
[2023-05-22] MEDS ORDERED: ONDANSETRON 4 MG/2 ML VIAL IVP PRN (02:13)
[2023-05-22] MEDS: PIPERACILLIN-TAZOBACTAM 3.375 GM in SODIUM CHLORIDE 0.9% 100 ML IVPB SCH (02:13)
[2023-05-22] MEDS ORDERED: ACETAMINOPHEN TAB 325 MG TAB PO PRN (02:13)
[2023-05-22] MEDS: HYDROmorphone 0.5 MG/0.5 ML SYRINGE IVP STA (02:51)
--- NOTE | 2023-05-22 03:18 | XR ---
EXAM: XR Chest, 1 View CLINICAL HISTORY: ITS.REASON XR Reason: verify ng tube placement TECHNIQUE: Frontal view of the chest. COMPARISON: No relevant prior studies available. FINDINGS: Lungs: Unremarkable. No consolidation. Pleural space: Unremarkable. No pneumothorax. Heart: Cardiomegaly. Mediastinum: Unremarkable. Normal mediastinal contour. Bones/joints: Unremarkable. No acute fracture. Tubes, lines and devices: Feeding tube terminates in the stomach. IMPRESSION: No acute findings in the chest.
[2023-05-22] MEDS: KETOROLAC 15 MG/ML 1 ML VIAL IVP PRN (04:57)
[2023-05-22] MEDS: SODIUM CHLORIDE 0.9% 1,000 ML IV SCH (04:59)
--- NOTE | 2023-05-23 03:45 | P.GSCN ---
History of Present Illness Consult date: 05/22/23 Reason for Consult: SBO, passing flatus History of present illness: 72-year-old female with past medical history significant for hypertension, hyperlipidemia, presenting to the ED with a chief complaint of abdominal pain. Patient states yesterday onset of lower abdominal pain. Today, onset of nausea, dry heaves, and 1 episode of nonbloody diarrhea. Denies fever or chills. Denies chest pains or shortness of breath. Patient does note some urinary frequency however reports that she has history of this and is unchanged. Patient states that she was bit by a tick approximately 7 months ago which she has seen her PCP for. Reports joint pains however this is unchanged compared to history of joint pains. No other complaints at this time. - Related Data Home Medications Medication Instructions Recorded Confirmed FLUoxetine HCL [PROzac] 40 mg PO DAILY 12/16/21 08/21/22 Atorvastatin [Lipitor] 40 mg PO HS 01/07/22 08/21/22 Ferrous Sulfate [Feosol] 325 mg PO DAILY 01/07/22 08/21/22 Pantoprazole [Protonix] 40 mg PO DAILY 01/07/22 08/21/22 Baclofen 10 mg PO HS 08/21/22 08/21/22 Carboxymethylcellulose Sodium 1 drop LEFT EYE TID 08/21/22 08/21/22 [Refresh Tears] Levothyroxine Sodium [Synthroid] 125 mcg PO DAILY 08/21/22 08/21/22 Timolol 0.5% Ophth Soln [Timoptic 1 drop RIGHT EYE DAILY 08/21/22 08/21/22 0.5% Ophth Soln] Allergies Allergy/AdvReac Type Severity Reaction Status Date / Time No Known Allergies Allergy Verified 05/21/23 19:16 Review of Systems ROS Statement: Those systems with pertinent positive or pertinent negative responses have been documented in the HPI. ROS Other: All systems not noted in ROS Statement are negative. Past Medical History Past Medical History: Coronary Artery Disease (CAD), GERD/Reflux, Hy perlipidemia, Hypertension, Myocardial Infarction ([place]), Osteoarthritis (OA), Thyroid Disorder Additional Past Medical History / Comment(s): bleeding ulcer, fx. L hip in 2021, covid 2021, SOB w/exertion, recent stress test, frequent leg cramps Last Myocardial Infarction Date:: 2021 History of Any Multi-Drug Resistant Organisms: None Reported Past Surgical History: Cholecystectomy, Heart Catheterization With Stent, Orthopedic Surgery Additional Past Surgical History / Comment(s): ORIF left hip, surg. for bleeding ulcer Past Anesthesia/Blood Transfusion Reactions: No Reported Reaction Date of Last Stent Placement:: 2021 Past Psychological History: Depression Smoking Status: Former smoker Past Alcohol Use History: None Reported Past Drug Use History: None Reported - Past Family History Mother Family Medical History: No Reported History General Exam General appearance: alert, in no apparent distress Eye exam: Present: normal appearance Neck exam: Present: normal inspection Respiratory exam: Present: normal lung sounds bilaterally Cardiovascular Exam: Present: regular rate, normal rhythm, systolic murmur GI/Abdominal exam: Present: soft (Diffuse abdominal tenderness to palpation. No rebound guarding or rigidity.), normal bowel sounds Back exam: Present: normal inspection Neurological exam: Present: alert, oriented X3 Skin exam: Present: warm, dry, other (Area in which patient states bit take her right lower leg shows no rash or erythema migrans.) Course Vital Signs 05/21/23 05/21/23 05/21/23 19:13 20:47 22:49 Temperature 98.3 F Pulse Rate 64 65 72 Respiratory 16 16 18 Rate Blood Pressure 139/57 141/68 153/69 O2 Sat by Pulse 98 98 97 Oximetry 05/22/23 05/22/23 00:45 02:00 Temperature Pulse Rate 68 74 Respiratory 18 18 Rate Blood Pressure 155/63 164/76 O2 Sat by Pulse 98 97 Oximetry - Lab Data Result diagrams: 05/21/23 19:27 05/21/23 19:27 Lab Results 05/21/23 05/21/23 05/21/23 Range/Units 19:27 19:27 19:27 WBC 5.6 (3.8-10.6) k/uL RBC 4.08 (3.80-5.40) m/uL Hgb 12.7 (11.4-16.0) gm/dL Hct 39.9 (34.0-46.0) % MCV 97.8 (80.0-100.0) fL MCH 31.1 (25.0-35.0) pg MCHC 31.7 (31.0-37.0) g/dL RDW 14.6 (11.5-15.5) % Plt Count 198 (150-450) k/uL MPV 9.0 Neutrophils % 81 % Lymphocytes % 13 % Monocytes % 3 % Eosinophils % 2 % Basophils % 0 % Neutrophils # 4.5 (1.3-7.7) k/uL Lymphocytes # 0.7 L (1.0-4.8) k/uL Monocytes # 0.2 (0-1.0) k/uL Eosinophils # 0.1 (0-0.7) k/uL Basophils # 0.0 (0-0.2) k/uL Sodium 139 (137-145) mmol/L Potassium 5.2 H (3.5-5.1) mmol/L Chloride 112 H (98-107) mmol/L Carbon Dioxide 20 L (22-30) mmol/L Anion Gap 7 mmol/L BUN 23 H (7-17) mg/dL Creatinine 0.55 (0.52-1.04) mg/dL Est GFR (CKD-EPI)AfAm >90 (>60 ml/min/1.73 sqM) Est GFR (CKD-EPI)NonAf >90 (>60 ml/min/1.73 sqM) Glucose 157 H (74-99) mg/dL Plasma Lactic Acid [place] (0.7-2.0) mmol/L Calcium 9.6 (8.4-10.2) mg/dL Total Bilirubin 1.9 H (0.2-1.3) mg/dL AST 55 H (14-36) U/L ALT 24 (4-34) U/L Alkaline Phosphatase 74 (38-126) U/L Total Protein 6.6 (6.3-8.2) g/dL Albumin 3.8 (3.5-5.0) g/dL Amylase 45 (30-110) U/L Lipase 292 (23-300) U/L Urine Color Colorless Urine Appearance Clear (Clear) Urine pH 5.5 (5.0-8.0) Ur Specific [place] 1.041 H (1.001-1.035) Urine Protein Negative (Negative) Urine Glucose (UA) Negative (Negative) Urine Ketones Negative (Negative) Urine Blood Trace H (Negative) Urine Nitrite Negative (Negative) Urine Bilirubin Negative (Negative) Urine Urobilinogen <2.0 (<2.0) mg/dL Ur Leukocyte Esterase Negative (Negative) Urine RBC 1 (0-5) /hpf Urine WBC 1 (0-5) /hpf Ur Squamous Epith Cells <1 (0-4) /hpf Hyaline Casts 1 (0-2) /lpf Urine Mucus Rare H (None) /hpf 05/22/23 Range/Units 00:14 WBC (3.8-10.6) k/uL RBC (3.80-5.40) m/uL Hgb (11.4-16.0) gm/dL Hct (34.0-46.0) % MCV (80.0-100.0) fL MCH (25.0-35.0) pg MCHC (31.0-37.0) g/dL RDW (11.5-15.5) % Plt Count (150-450) k/uL MPV Neutrophils % % Lymphocytes % % Monocytes % % Eosinophils % % Basophils % % Neutrophils # (1.3-7.7) k/uL Lymphocytes # (1.0-4.8) k/uL Monocytes # (0-1.0) k/uL Eosinophils # (0-0.7) k/uL Basophils # (0-0.2) k/uL Sodium (137-145) mmol/L Potassium (3.5-5.1) mmol/L Chloride (98-107) mmol/L Carbon Dioxide (22-30) mmol/L Anion Gap mmol/L BUN (7-17) mg/dL Creatinine (0.52-1.04) mg/dL Est GFR (CKD-EPI)AfAm (>60 ml/min/1.73 sqM) Est GFR (CKD-EPI)NonAf (>60 ml/min/1.73 sqM) Glucose (74-99) mg/dL Plasma Lactic Acid [place] 2.5 H* (0.7-2.0) mmol/L Calcium (8.4-10.2) mg/dL Total Bilirubin (0.2-1.3) mg/dL AST (14-36) U/L ALT (4-34) U/L Alkaline Phosphatase (38-126) U/L Total Protein (6.3-8.2) g/dL Albumin (3.5-5.0) g/dL Amylase (30-110) U/L Lipase (23-300) U/L Urine Color Urine Appearance (Clear) Urine pH (5.0-8.0) Ur Specific [place] (1.001-1.035) Urine Protein (Negative) Urine Glucose (UA) (Negative) Urine Ketones (Negative) Urine Blood (Negative) Urine Nitrite (Negative) Urine Bilirubin (Negative) Urine Urobilinogen (<2.0) mg/dL Ur Leukocyte Esterase (Negative) Urine RBC (0-5) /hpf Urine WBC (0-5) /hpf Ur Squamous Epith Cells (0-4) /hpf Hyaline Casts (0-2) /lpf Urine Mucus (None) /hpf Disposition Past Medical History Past Medical History: Coronary Artery Disease (CAD), GERD/Reflux, Hyperlipidemia, Hypertension, Myocardial Infarction ([place]), Osteoarthritis (OA), Thyroid Disorder Additional Past Medical History / Comment(s): bleeding ulcer, fx. L hip in 2021, covid 2021, SOB w/exertion, frequent leg cramps Last Myocardial Infarction Date:: 2021 History of Any Multi-Drug Resistant Organisms: None Reported Past Surgical History: Cholecystectomy, Heart Catheterization With Stent, Orthopedic Surgery Additional Past Surgical History / Comment(s): ORIF left hip, surg. for bleeding ulcer Past Anesthesia/Blood Transfusion Reactions: No Reported Reaction Date of Last Stent Placement:: 2021 Past Psychological History: Depression Smoking Status: Former smoker Past Alcohol Use History: None Reported Additional Past Alcohol Use History / Comment(s): quit smoking 30 yrs. ago, 1ppd, started in early s Past Drug Use History: None Reported - Past Family History Mother Family Medical History: No Reported History Medications and Allergies Home Medications Medication Instructions Recorded Confirmed Type Atorvastatin [Lipitor] 40 mg PO HS 01/07/22 05/22/23 History Ferrous Sulfate [Feosol] 325 mg PO DAILY 01/07/22 05/22/23 History Pantoprazole [Protonix] 40 mg PO DAILY 01/07/22 05/22/23 History Levothyroxine Sodium [Synthroid] 125 mcg PO DAILY 08/21/22 05/22/23 History FLUoxetine HCL [PROzac] 40 mg PO DAILY 05/22/23 05/22/23 History Metoprolol Succinate (ER) [Toprol 25 mg PO DAILY 05/22/23 05/22/23 History Xl] Prasugrel [Effient] 10 mg PO DAILY 05/22/23 05/22/23 History Sucralfate [Carafate] 1 gm PO QID 05/22/23 05/22/23 History Triamcinolone 0.1% Cream [Kenalog 1 applicatio TOPICAL BID 05/22/23 05/22/23 History 0.1% Cream] traZODone HCL [Desyrel] 25 mg PO HS 05/22/23 05/22/23 History Allergies Allergy/AdvReac Type Severity Reaction Status Date / Time No Known Allergies Allergy Verified 05/22/23 09:21 Surgical - Exam Vital Signs Temp Pulse Resp BP Pulse Ox 98.3 F 64 16 139/57 98 05/21/23 19:13 05/21/23 19:13 05/21/23 19:13 05/21/23 19:13 05/21/23 19:13 Results - Labs 05/21/23 19:27 05/21/23 19:27 - Imaging CT scan - abdomen: report reviewed, image reviewed Assessment and Plan (1) Bowel obstruction Current Visit: Yes Status: Acute Code(s): K56.609 - UNSP INTESTNL OBST, UNSP TO PARTIAL VERSUS COMPLETE OBST SNOMED Code(s): 23428329 Plan: patient NGT output clear minimal less than 100cc abdomen soft nontender, no leukocytosis passing flatus but no bowel movement plan: gastrograffine challenge (a bottle of gastrograffine mixed with equal volum tap water, amdinister via NGT clamp NGT and plain abdominal X-Ray in 6 hours sedial abdominal exam
--- NOTE | 2023-05-23 09:45 | P.PN ---
Subjective Progress Note Date: 05/23/23 patient feels better. She had some flatus last night. On exam vital signs are stable. Abdomen soft. Resolving small bowel charge. Patient will have her nasogastric tube removed. She'll start on clear liquids. Objective - Vital Signs Vital signs: Vital Signs Temp 97.8 F 05/23/23 08:00 Pulse 75 05/23/23 08:00 Resp 19 05/23/23 08:00 BP 120/70 05/23/23 08:00 Pulse Ox 97 05/23/23 08:00 FiO2 Intake & Output 05/22/23 05/23/23 05/23/23 18:59 06:59 18:59 Output Total 100 Balance -100 Output: Gastric Drainage 100 Other: # Voids 2 2 - Labs CBC & Chem 7: 05/21/23 19:27 05/21/23 19:27
[2023-05-23] MEDS: SUCRALFATE 1 GM TAB PO SCH (12:04)
[2023-05-23] MEDS: METOPROLOL SUCCINATE (ER) 25 MG TAB.ER.24H PO SCH (12:04)
--- NOTE | 2023-05-23 13:24 | P.CONS ---
History of Present Illness - Reason for Consult Consult date: 05/23/23 - History of Present Illness History of present illness; patient 72-year-old lady with past medical history significant for hypertension, hyperlipidemia came to the ER initially for abdominal pain. Patient stated that abdominal pain started 1 day and was located in the lower quadrants., Pain was intermittent, nonradiating, associated nausea but no vomiting. Denies any altered bowel movements. There is no complaint of fever or chills. Denies any chest pain or shortness of breath. There is no complaint of orthopnea or PND. Because of the symptoms, patient presented to the ER Initial blood work done in the ER showedWBC 5.6, hemoglobin 12.7, platelet count 198, sodium 139, potassium 5.2, BUN 23, creatinine 0.55, bilirubin 1.9, AST 55, ALT 24, CT abdominal pelvis done showed fluid-filled distended small bowel loops up to 3.6 cm consistent with obstruction, there is swirling of the mesenteric root. Patient admitted to surgery REVIEW OF SYSTEMS: CONSTITUTIONAL: No fever, no malaise, no fatigue. HEENT: No recent visual problems or hearing problems. Denied any sore throat. CARDIOVASCULAR: No chest pain, orthopnea, PND, no palpitations, no syncope. PULMONARY: No shortness of breath, no cough, no hemoptysis. GASTROINTESTINAL: As mentioned above NEUROLOGICAL: No headaches, no weakness, no numbness. HEMATOLOGICAL: Denies any bleeding or petechiae. GENITOURINARY: Denies any burning micturition, frequency, or urgency. MUSCULOSKELETAL/RHEUMATOLOGICAL: Denies any joint pain, swelling, or any muscle pain. ENDOCRINE: Denies any polyuria or polydipsia. The rest of the 14-point review of systems is negative. PHYSICAL EXAMINATION: GENERAL: The patient is alert and oriented x3, not in any acute distress. Well developed, well nourished. HEENT: Pupils are round and equally reacting to light. EOMI. No scleral icterus. No conjunctival pallor. Normocephalic, atraumatic. No pharyngeal erythema. No thyromegaly. CARDIOVASCULAR: S1 and S2 present. No murmurs, rubs, or gallops. PULMONARY: Chest is clear to auscultation, no wheezing or crackles. ABDOMEN: Soft, nontender, nondistended, normoactive bowel sounds. No palpable organomegaly. MUSCULOSKELETAL: No joint swelling or deformity. EXTREMITIES: No cyanosis, clubbing, or pedal edema. NEUROLOGICAL: Gross neurological examination did not reveal any focal deficits. SKIN: No rashes. Assessment and plan Small bowel obstruction Hypertension hyperlipidemia Hypothyroidism Monitor vital signs Monitor CBC Monitor CMP Continue telemetry monitoring Keep patient n.p.o. Continue NG tube Continue antiemetics continue IV fluid Surgery following Resume home meds Labs and medication were reviewed.. Continue same treatment. Continue with symptomatic treatment. Resume home medication. Monitor labs and vitals. DVT and GI prophylaxis. Further recommendations as per clinical course of the patient Dictation was produced using [employer] dictation software. please excuse any grammatical, word or spelling errors. Past Medical History Past Medical History: Coronary Artery Disease (CAD), GERD/Reflux, Hyperlipidemia, Hypertension, Myocardial Infarction (MS), Osteoarthritis (OA), Thyroid Disorder Additional Past Medical History / Comment(s): bleeding ulcer, fx. L hip in 2021, covid 2021, SOB w/exertion, frequent leg cramps Last Myocardial Infarction Date:: 2021 History of Any Multi-Drug Resistant Organisms: None Reported Past Surgical History: Cholecystectomy, Heart Catheterization With Stent, Orthopedic Surgery Additional Past Surgical History / Comment(s): ORIF left hip, surg. for bleeding ulcer Past Anesthesia/Blood Transfusion Reactions: No Reported Reaction Date of Last Stent Placement:: 2021 Past Psychological History: Depression Smoking Status: Former smoker Past Alcohol Use History: None Reported Additional Past Alcohol Use History / Comment(s): quit smoking 30 yrs. ago, 1ppd, started in early Past Drug Use History: None Reported - Past Family History Mother Family Medical History: No Reported History Medications and Allergies Home Medications Medication Instructions Recorded Confirmed Type Atorvastatin [Lipitor] 40 mg PO HS 01/07/22 05/22/23 History Ferrous Sulfate [Feosol] 325 mg PO DAILY 01/07/22 05/22/23 History Pantoprazole [Protonix] 40 mg PO DAILY 01/07/22 05/22/23 History Levothyroxine Sodium [Synthroid] 125 mcg PO DAILY 08/21/22 05/22/23 History FLUoxetine HCL [PROzac] 40 mg PO DAILY 05/22/23 05/22/23 History Metoprolol Succinate (ER) [Toprol 25 mg PO DAILY 05/22/23 05/22/23 History Xl] Prasugrel [Effient] 10 mg PO DAILY 05/22/23 05/22/23 History Sucralfate [Carafate] 1 gm PO QID 05/22/23 05/22/23 History Triamcinolone 0.1% Cream [Kenalog 1 applicatio TOPICAL BID 05/22/23 05/22/23 History 0.1% Cream] traZODone HCL [Desyrel] 25 mg PO HS 05/22/23 05/22/23 History Allergies Allergy/AdvReac Type Severity Reaction Status Date / Time No Known Allergies Allergy Verified 05/22/23 09:21 Physical Exam Vitals: Vital Signs Temp Pulse Resp BP Pulse Ox 05/23/23 08:00 97.8 F 75 19 120/70 97 05/23/23 01:49 97.8 F 71 16 136/78 94 L 05/22/23 19:11 97.9 F 72 14 145/70 96 05/22/23 13:35 97.7 F 64 16 115/76 97 Intake and Output 05/22/23 05/23/23 05/23/23 22:59 06:59 14:59 Output Total 100 Balance -100 Output: Gastric Drainage 100 Other: # Voids 2 2 Results CBC & Chem 7: 05/21/23 19:27 05/21/23 19:27
[2023-05-23] MEDS: ATORVASTATIN 40 MG TAB PO SCH (20:30)
[2023-05-23] MEDS: traZODone HCL 50 MG TAB PO SCH (20:30)
[2023-05-24] MEDS: LEVOTHYROXINE 125 MCG TAB PO SCH (06:47)
[2023-05-24] MEDS: PANTOPRAZOLE 40 MG TABLET PO SCH (06:47)
[2023-05-24] MEDS: FERROUS SULFATE 325 MG TAB PO SCH (08:28)
[2023-05-24] MEDS: FLUoxetine HCL 20 MG CAP PO SCH (08:28)
[2023-05-24] MEDS: PRASUGREL 10 MG TAB PO SCH (08:28)
[2023-05-24 08:41] LABS: Basophils # (A) 0.01 X 10*3/uL (0.00-0.10); Basophils % (A) 0.3 %; Eosinophils # (A) 0.27 X 10*3/uL (0.04-0.35); Eosinophils % (A) 7.2 %; HCT 32.5 % (37.2-46.3); HGB 10.4 g/dL (12.0-15.0); Lymphocytes # (A) 1.31 X 10*3/uL (0.90-5.00); MCH 30.6 pg (27.0-32.0); MCV 95.6 FL (80.0-97.0); Mean Platelet Volume 10.9 FL (9.5-12.2); Monocytes # (A) 0.43 X 10*3/uL (0.20-1.00); Monocytes % (A) 11.5 %; NRBC Per 100 WBC 0 X 10*3/uL (0.00-0.01); Neutrophils % (A) 45.5 %; Platelet Count 160 X 10*3/uL (140-440); RDW 14.4 % (11.5-14.5); WBC 3.74 X 10*3/uL (4.50-10.00)
[2023-05-24 08:58] LABS: ALT 15 U/L (8-44); AST 26 U/L (13-35); Albumin 3.1 g/dL (3.8-4.9); Albumin/Globulin Ratio 1.82 Ratio (1.60-3.17); Alkaline Phosphatase 67 U/L (41-126); Blood Urea Nitrogen 16.8 mg/dL (9.0-27.0); Calcium 8.5 mg/dL (8.7-10.3); Carbon Dioxide 23.8 mmol/L (21.6-31.8); Chloride 113 mmol/L (96-109); Globulin 1.7 g/dL (1.6-3.3); Glucose 96 mg/dL (70-110); Potassium 3.4 mmol/L (3.5-5.5); Sodium 145 mmol/L (135-145); Total Bilirubin 1.4 mg/dL (0.3-1.2); Total Protein 4.8 g/dL (6.2-8.2)
[2023-05-24] MEDS ORDERED: Potassium Replacement Protocol 1 EACH MISC MISCELLANE PRN ×2 (09:39→14:14)
[2023-05-24] MEDS: POTASSIUM CHLORIDE ER 20 MEQ TAB.ER PO SCH (10:59)
--- NOTE | 2023-05-24 17:31 | P.PN ---
Subjective Progress Note Date: 05/24/23 patient is improving. She states she's had no pain. She is having multiple bouts of flatus. On exam vital signs appear stable. Abdomen soft. Resolving polyp structure. Patient will be advanced to regular diet. We discussed the discharge home tomorrow. Objective - Vital Signs Vital signs: Vital Signs Temp 97 F L 05/24/23 14:00 Pulse 68 05/24/23 14:00 Resp 17 05/24/23 14:00 BP 127/55 05/24/23 14:00 Pulse Ox 97 05/24/23 14:00 FiO2 Intake & Output 05/23/23 05/24/23 05/24/23 18:59 06:59 18:59 Other: Voiding Method Toilet # Voids 2 - Labs CBC & Chem 7: 05/24/23 04:09 05/24/23 04:09 Labs: Abnormal Lab Results - Last 24 Hours (Table) 05/24/23 05/24/23 Range/Units 04:09 04:09 WBC 3.74 L (4.50-10.00) X 10*3/uL RBC 3.40 L (4.10-5.20) X 10*6/uL Hgb 10.4 L (12.0-15.0) g/dL Hct 32.5 L (37.2-46.3) % Neutrophils # 1.70 L (1.80-7.70) X 10*3/uL Potassium 3.4 L (3.5-5.5) mmol/L Chloride 113 H (96-109) mmol/L BUN/Creatinine Ratio 28.00 H (12.00-20.00) Ratio Calcium 8.5 L (8.7-10.3) mg/dL Total Bilirubin 1.4 H (0.3-1.2) mg/dL Total Protein 4.8 L (6.2-8.2) g/dL Albumin 3.1 L (3.8-4.9) g/dL
--- NOTE | 2023-05-25 08:12 | PN ---
PROGRESS NOTE DATE OF SERVICE: 05/24/2023 This 72-year-old woman was admitted with small-bowel obstruction, is improving. No chest pain. No palpitations. No fever. PHYSICAL EXAMINATION: VITAL SIGNS: Pulse is 66, blood pressure 119/72, respirations 16. CHEST: Clear to auscultation. ABDOMEN: Soft and nontender. LABORATORY DATA: Potassium 3.4, rest of the labs are noted. ASSESSMENT: 1. Small bowel obstruction. 2. Hypertension. 3. Hyperlipidemia. 4. Hypothyroidism. RECOMMENDATIONS: Recommend to continue current medications, symptomatic treatment, otherwise repeat lytes. Diet per Surgery. Potassium supplementation. Further recommendations to follow. MMODL / IJN: [id number] /
[2023-05-25 08:16] LABS: Basophils # (A) 0.02 X 10*3/uL (0.00-0.10); Basophils % (A) 0.6 %; Eosinophils # (A) 0.26 X 10*3/uL (0.04-0.35); Eosinophils % (A) 8.3 %; HCT 32.3 % (37.2-46.3); HGB 10.5 g/dL (12.0-15.0); Immature Grans, Automated 0 %; Lymphocytes # (A) 1.35 X 10*3/uL (0.90-5.00); Lymphocytes % (A) 43.1 %; MCH 30.7 pg (27.0-32.0); MCHC 32.5 g/dL (32.0-37.0); MCV 94.4 FL (80.0-97.0); Mean Platelet Volume 10.7 FL (9.5-12.2); Monocytes # (A) 0.34 X 10*3/uL (0.20-1.00); Monocytes % (A) 10.9 %; NRBC Per 100 WBC 0 X 10*3/uL (0.00-0.01); Neutrophils # (A) 1.16 X 10*3/uL (1.80-7.70); Neutrophils % (A) 37.1 %; Platelet Count 149 X 10*3/uL (140-440); RBC 3.42 X 10*6/uL (4.10-5.20); WBC 3.13 X 10*3/uL (4.50-10.00)
[2023-05-25 08:33] LABS: Blood Urea Nitrogen 11.2 mg/dL (9.0-27.0); Calcium 8.5 mg/dL (8.7-10.3); Carbon Dioxide 22.9 mmol/L (21.6-31.8); Chloride 110 mmol/L (96-109); Glucose 86 mg/dL (70-110); Potassium 3.7 mmol/L (3.5-5.5); Sodium 140 mmol/L (135-145)
[2023-05-25 08:42] VITALS: BP 119/60; PULSE 63; RESP 16; TEMP 98.5
[2023-05-25 11:19] LABS: Glucose,Whole Blood 99 mg/dL (70-110)
--- NOTE | 2023-05-25 14:13 | P.DS ---
Providers Date of admission: 05/22/23 02:13 Expected date of discharge: 05/25/23 Attending physician: Neo Farmer Consults: 05/23/23 03:06 Consult Physician Routine Consulting Provider: Jun Naqvi Consult Reason/Comments: medical management Do you want consulting provider notified?: Yes, Notify in am Primary care physician: Herb Patel MD Hospital Course: Discharge diagnosis 1. Small bowel obstruction managed conservatively Hospital course This is a 72-year-old female who presented with abdominal pain and vomiting. Her CT scan was consistent with a small bowel obstruction. NG tube was placed. Patient had improvement in her abdominal pain and distention. She started having bowel activity. NG tube removed. She was started on diet and advanced. She is tolerating diet. She is having bowel movements. She denies any abdominal pain. She has been up and ambulating. She is afebrile. She is stable for discharge. Please refer to chart for any further details. Physician Tunneller note has been reviewed by physician. Signing provider agrees with the documented findings, assessment, and plan of care. Patient Condition at Discharge: Stable Plan - Discharge Summary Discharge Rx Participant: No New Discharge Prescriptions: No Action Pantoprazole [Protonix] 40 mg PO DAILY Ferrous Sulfate [Feosol] 325 mg PO DAILY Atorvastatin [Lipitor] 40 mg PO HS Levothyroxine Sodium [Synthroid] 125 mcg PO DAILY traZODone HCL [Desyrel] 25 mg PO HS Prasugrel [Effient] 10 mg PO DAILY Metoprolol Succinate (ER) [Toprol Xl] 25 mg PO DAILY FLUoxetine HCL [PROzac] 40 mg PO DAILY Triamcinolone 0.1% Cream [Kenalog 0.1% Cream] 1 applicatio TOPICAL BID Sucralfate [Carafate] 1 gm PO QID Discharge Medication List Atorvastatin [Lipitor] 40 mg PO HS 01/07/22 [History] Ferrous Sulfate [Feosol] 325 mg PO DAILY 01/07/22 [History] Pantoprazole [Protonix] 40 mg PO DAILY 01/07/22 [History] Levothyroxine Sodium [Synthroid] 125 mcg PO DAILY 08/21/22 [History] FLUoxetine HCL [PROzac] 40 mg PO DAILY 05/22/23 [History] Metoprolol Succinate (ER) [Toprol Xl] 25 mg PO DAILY 05/22/23 [History] Prasugrel [Effient] 10 mg PO DAILY 05/22/23 [History] Sucralfate [Carafate] 1 gm PO QID 05/22/23 [History] Triamcinolone 0.1% Cream [Kenalog 0.1% Cream] 1 applicatio TOPICAL BID 05/22/23 [History] traZODone HCL [Desyrel] 25 mg PO HS 05/22/23 [History] Follow up Appointment(s)/Referral(s): Herb Patel MD [Primary Care Provider] - 1-2 days (patient not established at this location) Neo Farmer MD [STAFF PHYSICIAN] - 06/03/23 1:40 pm Activity/Diet/Wound Care/Special Instructions: Medicine service to complete to medrec Discharge Disposition: HOME SELF-CARE
== END 2023-05-25 13:12 | disposition home or self-care (01) | DRG 390 ==
LOC: EC 19:11 → 4SSUR 05-22 02:13
PROVIDERS: ADMIT Surgery; ATTEND Surgery
PROC: 0D9670Z Drainage of Stomach with Drainage Device, Via Natural or Artificial Opening (ICD-10-PCS; principal; 2023-05-22)
DX: K56.609 Unspecified intestinal obstruction, unspecified as to partial versus complete obstruction (principal); E03.9 Hypothyroidism, unspecified; Z79.890 Hormone replacement therapy; E78.5 Hyperlipidemia, unspecified; I10 Essential (primary) hypertension; I25.10 Atherosclerotic heart disease of native coronary artery without angina pectoris; R35.0 Frequency of micturition; Z86.16 Personal history of COVID-19; I25.2 Old myocardial infarction; M19.90 Unspecified osteoarthritis, unspecified site; K21.9 Gastro-esophageal reflux disease without esophagitis; Z79.02 Long term (current) use of antithrombotics/antiplatelets; Z79.899 Other long term (current) drug therapy; Z87.891 Personal history of nicotine dependence
CPT/HCPCS: 36415; 71045; 74177; 80048; 80053; 81001; 82150; 83605; 83690; 85025; 96361; 96374; 96375; 99285